=== PATIENT | female | born 1950 | race Caucasian/White ===

== ENCOUNTER 2018-02-27 14:14 | Emergency (ER) | payer SELFPAY ==
[2018-02-27] MEDS: ACETAMINOPHEN 325 MG TAB PO (15:26)
== END 2018-02-27 16:59 | disposition home or self-care (01) ==
LOC: FTE 14:14
DX: M25.562 Pain in left knee (principal); M25.561 Pain in right knee; E11.9 Type 2 diabetes mellitus without complications; I10 Essential (primary) hypertension
CPT/HCPCS: 73562; 93971; 99284-25